=== PATIENT | male | born 1990 | race Caucasian/White ===

== ENCOUNTER 2019-10-12 21:16 | Inpatient (IN) | payer SELFPAY ==
[2019-10-12 21:18] VITALS: BP 158/100; PULSE 107; RESP 18; TEMP 36.9; O2SAT 98; BMI 23.7
--- NOTE | 2019-10-12 21:22 | W.ED.PSYCH ---
HPI - Psych General: Chief Complaint: Psychiatric Symptoms Stated Complaint: SI Time Seen by Provider: 10/12/19 21:17 Source: patient, police and other (police) Mode of arrival: other (police) History of Present Illness: HPI Narrative: 29-year-old male that is brought here by police under a 96-hour hold. Family states that he has been making threats to kill himself and has been using drugs and alcohol. Patient here denies being suicidal but is willing to get help. Patient's been cooperative here. He states he has drank today. He states he smokes marijuana denies any IV drug use. complaint: suicidal ideation Associated symptoms: Reports depression Review of Systems Const: Denies: fever, chills, body aches or change in appetite Eyes: Denies: blurry vision or eye discomfort ENMT: Denies: throat pain or dental pain Card: Denies: chest pain Resp: Denies: shortness of breath GI: Denies: abdominal pain, nausea, vomiting or diarrhea : Denies: painful urination Musc: Denies: neck pain or back pain Skin/Breast: Denies: rash Neuro: Denies: headache Psych: Reports: depression Jonathan/Lymph: Denies: easy bruising All/Imm: Denies: hives PFSH ED PFSH: Social History Smoking and tobacco status: current every day smoker Physical Exam Const: COMMON NORMALS: no apparent distress, oriented x3 and healthy appearing HENMT: COMMON NORMALS: normocephalic and head/scalp atraumatic HEAD & SCALP: normocephalic and atraumatic Eye: COMMON NORMALS: PERRL and EOMs intact bilaterally PUPIL: Yes PERRL Neck/C-Spine: COMMON NORMALS: full ROM and supple Chest: COMMONS NORMALS: inspection of chest normal and palpation of chest normal Resp: COMMON NORMALS: normal respiratory effort, no retractions, no use of accessory muscles and clear to auscultation bilaterally AUSCULTATION: clear to auscultation bilaterally Cardio: COMMON NORMALS: regular rate, regular rhythm and no murmurs RATE: regular rate RHYTHM: regular rhythm GI: COMMON NORMALS: normal to inspection, nondistended, normoactive bowel sounds, soft to palpation, non-tender and no masses PALPATION: Yes soft Extremity: COMMON NORMALS: normal to inspection and full ROM Neuro: COMMON NORMALS: oriented x3, moves all extremities and no focal motor deficits Psych: COMMON NORMALS: mental status grossly normal, thought process normal and cooperative THOUGHT PROCESS: normal thought process Skin: COMMON NORMALS: no rashes or lesions noted and no wounds GENERAL SKIN EXAM: no rashes or lesions noted MDM - Psych MDM Narrative: Medical decision making narrative: Patient presents here with suicidal ideation and is under a 96-hour hold. Patient's medically cleared and I spoke to Dr. Mai of psychiatry and will admit. Patient has been stable and cooperative here. Lab Data: Labs: Lab Results 10/12/19 10/12/19 Range/Units 21:29 21:29 WBC 12.8 H (4.0-10.0) 10^3/ uL RBC 4.51 (4.1-5.3) 10^6/u L Hgb 14.2 (11.7-16.6) g/dL Hct 43.1 (42.0-52.0) % MCV 95.6 H (80-94) fL MCH 31.5 (28.0-34.0) pg MCHC 32.9 (30.0-36.0) g/dL RDW 13.3 (12.1-15.1) % Plt Count 430 H (130-400) 10^3/c mm MPV 9.7 (7.4-10.4) fL Neut % (Auto) 69.2 % Lymph % (Auto) 18.7 % Shoshone % (Auto) 6.3 % Eos % (Auto) 4.8 % Baso % (Auto) 0.7 % Neut # (Auto) 8.9 H (1.8-7.7) 10^3/u L Lymph # (Auto) 2.4 (0.8-4.8) 10^3/u L Shoshone # (Auto) 0.8 (0.2-0.9) 10^3/u L Eos # (Auto) 0.6 (0.0-0.8) 10^3/u L Baso # (Auto) 0.1 (0.0-0.1) 10^3/u L Nucleated RBC % (a uto) 0 % Nucleated RBCs # 0.0 /100WBC Sodium 138 (136-145) mmol/L Potassium 3.9 (3.5-5.1) mmol/L Chloride 100 (98-107) mmol/L Carbon Dioxide 23 (22-29) mmol/L Anion Gap 18.9 (5-19) BUN 13 (6-20) mg/dL Creatinine 1.1 (0.7-1.2) mg/dL GFR Calculation 79.1 L (90-130) mL/min Glucose 99 (65-115) mg/dL Calculated Osmolal ity 282 L (285-295) mOsm/k g Calcium 9.2 (8.5-10.5) mg/dL Total Bilirubin 0.3 (0.15-1.2) mg/dL AST 49 H (0-40) U/L ALT 29 (0-41) U/L Alkaline Phosphata se 96 (40-130) IU/L Total Protein 7.3 (6.6-8.7) g/dL Albumin 4.6 (3.5-5.2) g/dL Globulin 2.7 (1.3-4.6) g/dL Salicylates < 0.3 L (3-10) mg/dL Acetaminophen < 5.0 L (10-30) ug/mL Ethyl Alcohol 16 H (0-10) mg/dL Discharge Plan Discharge Patient Disposition: Admitted As Inpatient Clinical Impression: Suicidal ideation Condition: Stable Coding Level of Care Code ED Certified Flex Endoscope Reprocessor for [facility] Fwd Exam Comprehensive
--- NOTE | 2019-10-12 21:29 | PC.NURSE ---
PATIENT STATES HE WAS PICKED UP AT HOME WHILE HE WAS WORKING BY THE LAW ENFORCEMENT. PATIENT STATES HE DOESN'T KNOW WHY HE IS AT THE HOSPITAL AND THAT HE IS NOT SUICIDAL. PATIENT STATES HE DOESN'T KNOW WHO SIGNED ANY PAPERWORK ON HIM TO HAVE HIM TAKEN TO THE HOSPITAL. PATIENT STATES HE WILL BE COOPERATIVE AND THAT HE JUST WANTS TO GET BACK TO WORK.
[2019-10-12 21:34] VITALS: RESP 16
[2019-10-12 21:39] LABS: Basophils # 0.1 10^3/uL (0.0-0.1); Basophils % 0.7 %; Eosinophils # 0.6 10^3/uL (0.0-0.8); Eosinophils % 4.8 %; Hematocrit 43.1 % (42.0-52.0); Hemoglobin 14.2 g/dL (11.7-16.6); Lymphocytes # 2.4 10^3/uL (0.8-4.8); Lymphocytes % 18.7 %; Mean Corpuscular HGB Conc 32.9 g/dL (30.0-36.0); Mean Corpuscular Hemoglobin 31.5 pg (28.0-34.0); Mean Corpuscular Volume 95.6 fL (80-94); Mean Platelet Volume 9.7 fL (7.4-10.4); Monocytes # 0.8 10^3/uL (0.2-0.9); Monocytes % 6.3 %; Neutrophils # 8.9 10^3/uL (1.8-7.7); Neutrophils % 69.2 %; Nucleated Red Blood Cells % 0 %; Platelet Count 430 10^3/cmm (130-400); Red Blood Count 4.51 10^6/uL (4.1-5.3); Red Cell Distribution Width 13.3 % (12.1-15.1); White Blood Count 12.8 10^3/uL (4.0-10.0)
[2019-10-12 21:47] VITALS: BP 158/99; PULSE 103; RESP 18; O2SAT 97
[2019-10-12 21:55] LABS: Alanine Aminotransferase 29 U/L (0-41); Albumin Level 4.6 g/dL (3.5-5.2); Alcohol Level 16 mg/dL (0-10); Alkaline Phosphatase 96 IU/L (40-130); Anion Gap 18.9 (5-19); Aspartate Amino Transferase 49 U/L (0-40); Blood Urea Nitrogen 13 mg/dL (6-20); Calcium 9.2 mg/dL (8.5-10.5); Carbon Dioxide 23 mmol/L (22-29); Chloride 100 mmol/L (98-107); Globulin 2.7 g/dL (1.3-4.6); Glomerular Filtration Rate 79.1 mL/min (90-130); Glucose 99 mg/dL (65-115); Osmolality Calculated 282 mOsm/kg (285-295); Potassium 3.9 mmol/L (3.5-5.1); Sodium 138 mmol/L (136-145); Total Bilirubin 0.3 mg/dL (0.15-1.2); Total Protein 7.3 g/dL (6.6-8.7)
[2019-10-12 22:06] LABS: Acetaminophen < 5.0 ug/mL (10-30); Salicylate < 0.3 mg/dL (3-10)
[2019-10-12 22:21] LABS: Amphetamines Screen Urine Positive (Negative); Barbiturates Screen Urine Negative (Negative); Benzodiazepines Screen Urine Negative (Negative); Cocaine Screen Urine Negative (Negative); Opiate Screen Urine Negative (Negative); PCP Screen Urine Negative (Negative); THC Screen Urine Positive (Negative)
--- NOTE | 2019-10-12 22:36 | PC.NURSE ---
Pt refusing nicotine patch
--- NOTE | 2019-10-12 23:01 | PC.NURSE ---
pt has complaints of back pain and bed is aggravating back injury. Pt refusing alternative chair or pain meds
--- NOTE | 2019-10-12 23:05 | PC.NURSE ---
Pt stating he will not sleep due to not being able to remove contact lenses and bed aggravating his back pain. Pt pacing around room, unable to sit still
--- NOTE | 2019-10-12 23:13 | PC.NURSE ---
1:1 SITTER MAINTAINED AT DOORWAY
[2019-10-12 23:51] VITALS: BP 160/105; PULSE 116; RESP 18; O2SAT 97
[2019-10-13 00:02] VITALS: BP 153/108; PULSE 98; TEMP 36.8; O2SAT 96
[2019-10-13 00:05] VITALS: BP 160/105; PULSE 116; RESP 18; O2SAT 97
[2019-10-13 06:00] VITALS: BP 141/95; PULSE 91; RESP 20; TEMP 36.4; O2SAT 96
[2019-10-13] MEDS: folic acid 1 mg Tablet PO (07:39)
[2019-10-13] MEDS: multivitamin therapeutic Tablet 1 TAB PO (07:39)
[2019-10-13] MEDS: thiamine 100 mg Tablet PO (07:39)
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
[2019-10-13 14:00] VITALS: BP 147/111; PULSE 105; RESP 18; TEMP 36.9; O2SAT 100
[2019-10-13] MEDS: nicotine 2 mg Gum BUCCAL (14:00)
[2019-10-13] MEDS: hyDROXYzine 25 mg Capsule 50 MG PO (14:50)
--- NOTE | 2019-10-13 14:51 | PC.NURSE ---
PRN VISTARIL 50 MG GIVEN PO PER PT C/O ANXIETY. PT TEARFUL AFTER CONVERSATION WITH . WILL CONT TO MONITOR FOR DESIRED MED EFFECTIVENESS.
--- NOTE | 2019-10-13 16:32 | PC.RESP ---
Smoking Cessation information with a schedule of classes sent to patient.
[2019-10-13 22:00] VITALS: BP 150/97; PULSE 79; RESP 17; TEMP 36.4; O2SAT 99
[2019-10-14 06:00] VITALS: BP 148/94; PULSE 103; RESP 18; TEMP 36.7; O2SAT 96
[2019-10-14] MEDS: folic acid 1 mg Tablet PO (09:00)
[2019-10-14] MEDS: thiamine 100 mg Tablet PO (09:00)
[2019-10-14] MEDS: multivitamin therapeutic Tablet 1 TAB PO (09:00)
[2019-10-14] MEDS: nicotine 2 mg Gum BUCCAL (13:06)
--- NOTE | 2019-10-14 13:22 | PC.SOCIAL ---
information from , Anjali [phone] patient has had mood swings off and on for 8 years. last 2 months has been worse. he has had substance abuse issues for several years. recently he admitted to using meth. he has left notes saying he hates himself. he has admitted using hydrocodeine pills from the street. he has snorted them. he has been worried about starting medicine on how it might affect his organ but he has no problem with drinking alcohol and taking pain pills. he complains of hand pain and back pain. most days he is irritable. he snores loudly he has high blood pressue at times he has been borrowing money from people and then saying he has nothing to show for it on how he spent it. He will say he gets gas and cigarettes but then come home without gas and cigarettes. wants their relationship to work. she wants him in rehab no matter what the cost. she is looking at [facility] in [place]. she does not think outpatient rehab will be enough.
[2019-10-14] MEDS: OLANZapine ODT 5 MG TABLET PO (13:44)
--- NOTE | 2019-10-14 13:44 | PC.NURSE ---
Addendum entered by Salima Linares LPN 10/14/19 15:58: MEDICATION EFFECTIVE. NO FURTHER C/O ANXIETY/AGITATION. Original Note: PRN ZYPREXA ZYDIS ZYPREXA ZYDIS 5 MG PO PER PATIENT C/O ANXIETY/AGITATION. PATIENT IS ON THE PHONE ARGUING WITH AND CRYING. WILL CONTINUE TO MONITOR FOR MEDICATION EFFECTIVENESS.
[2019-10-14 14:00] VITALS: BP 134/89; PULSE 82; RESP 18; TEMP 36.9; O2SAT 99
--- NOTE | 2019-10-14 15:32 | PM.NPN ---
Subjective NPU Subjective: Interval history: Deshaun presented today having spoken to his and he is dealing with multiple emotions. He continues to be sad but is also angry because he feels like he has reached out for months trying to get help and trying to reconnect their relationship. Now he feels like he is being painted as the problem and she is being painted as the savior and she is acting like she is in charge of this encounter. He was open the medication and we discussed the risks, benefits and alternatives of starting Prozac as well as lisinopril for his high blood pressure and he understood and agreed to proceed as is documented in this note. Mental Status Exam MSE Comments: This is a well-nourished, well-developed, white male, with adequate dress, grooming, and eye contact with notable deformity of his left arm, tattoo on his right bicep. Cooperative with exam in mild distress. Speech was decreased rate and volume. Mood described as angry/sad; affect congruent. Thought process, organized. Thought content: patient denied any suicidal or homicidal ideation, there were no delusions reported or noted, patient denied any auditory or visual hallucinations. Attention, concentration, and memory appear intact but were not formally tested. He is alert and oriented times three. Insight and judgment are fair. Vitals/I&O/Wt Last Vital Signs Temp 98.1 F 10/14/19 06:00 Pulse 103 H 10/14/19 06:00 Resp 18 10/14/19 06:00 BP 148/94 10/14/19 06:00 Pulse Ox 96 10/14/19 06:00 Data NPU : 10/12/19 21:29 10/12/19 21:29 A&P Assessment and plan (1) Alcohol abuse: Status: Acute (2) Methamphetamine abuse: Status: Acute (3) Cannabis abuse: Status: Acute (4) Partner relational problem: Status: Acute (5) Depression: Status: Acute (6) Suicidal ideation: Status: Acute Additional A&P Information (1) Suicidal ideation: This is a 29 year old, white male, with depression, spousal relational problems, and substance abuse issues that would benefit from some ongoing treatment, who presents after making some aggressive statements during an argument. He denies any lethality. Continue current medication except: Start prozac 20 mg and lisinopril 10. Continue q 15-minute checks for safety. Encourage individual, group, and milieu therapy. Will encourage sober living follow-up at the highest level to which he is willing to commit. At this point, the most likely fit would be outpatient services. (2) Depression: (3) Partner relational problem: (4) Cannabis abuse: (5) Methamphetamine abuse: (6) Alcohol abuse: Involuntary Hold Information 96 Hour Hold: 96 Hour Involuntary Admission: Yes 96 Hour Hold Ending Date: 10/18/19 96 Hour Hold Ending Time: 21:19 Attestations NPU Medical Necessity Statement*: Inpatient hospitalization is medically necessary and the clinically appropriate intervention at this time. We will monitor and consider medications, and make changes as indicated. He will be in the hospital for over two midnights. Likely length of stay 1-3 days. Coding Level of Care Code Acute Automotive Service Director for [facility] Diagnoses Alcohol abuse F10.10 Methamphetamine abuse F15.10 Cannabis abuse F12.10 Partner relational problem Z63.0 Depression F32.9 Suicidal ideation R45.851
[2019-10-14] MEDS: fluoxetine 20 mg Capsule PO (15:51)
[2019-10-14] MEDS: lisinopril 10 mg Tablet PO (15:51)
[2019-10-14] MEDS: trazodone 50 mg Tablet PO (20:37)
[2019-10-14 22:00] VITALS: BP 135/87; PULSE 89; RESP 17; TEMP 36.6; O2SAT 99
[2019-10-15 06:00] VITALS: BP 138/100; PULSE 101; RESP 18; TEMP 36.5; O2SAT 98
[2019-10-15] MEDS: folic acid 1 mg Tablet PO (08:03)
[2019-10-15] MEDS: thiamine 100 mg Tablet PO (08:03)
[2019-10-15] MEDS: fluoxetine 20 mg Capsule PO (08:03)
[2019-10-15] MEDS: lisinopril 10 mg Tablet PO (08:03)
[2019-10-15] MEDS: multivitamin therapeutic Tablet 1 TAB PO (08:04)
[2019-10-15] MEDS: nicotine 2 mg Gum BUCCAL ×4 (08:04→18:17)
--- NOTE | 2019-10-15 12:33 | PM.NPN ---
Subjective NPU Subjective: Interval history: Deshaun presents today reporting that he is feeling okay on the medication. He has been having conversations with his and trying to figure out how they are going to get things moving in the right direction. He reports she reports that she got a marriage counselor appointment for them in 10 days or so. We discussed the importance of him getting individual counseling to begin to deal with these anger issues that go back to issues surrounding the absence of his father. He denies any side effects of medications. Mental Status Exam MSE Comments: This is a well-nourished, well-developed, white male, with adequate dress, grooming, and eye contact with notable deformity of his left arm, tattoo on his right bicep. Cooperative with exam in no acute distress. Speech was mildly decreased rate and volume but improving. Mood described as better; affect congruent. Thought process, organized. Thought content: patient denied any suicidal or homicidal ideation, there were no delusions reported or noted, patient denied any auditory or visual hallucinations. Attention, concentration, and memory appear intact but were not formally tested. He is alert and oriented times three. Insight and judgment are fair and improving. Vitals/I&O/Wt Last Vital Signs Temp 98.4 F 10/15/19 22:00 Pulse 101 H 10/15/19 22:00 Resp 18 10/15/19 22:00 BP 128/95 10/15/19 22:00 Pulse Ox 95 10/15/19 22:00 Data NPU : 10/12/19 21:29 10/12/19 21:29 A&P Additional A&P Information (1) Suicidal ideation: This is a 29 year old, white male, with depression, spousal relational problems, and substance abuse issues that would benefit from some ongoing treatment, who presents after making some aggressive statements during an argument. He denies any lethality. Continue current medication except: Continue q 15-minute checks for safety. Encourage individual, group, and milieu therapy. Will encourage sober living follow-up at the highest level to which he is willing to commit. At this point, the most likely fit would be outpatient services. (2) Depression: (3) Partner relational problem: (4) Cannabis abuse: (5) Methamphetamine abuse: (6) Alcohol abuse: Involuntary Hold Information 96 Hour Hold: 96 Hour Involuntary Admission: Yes 96 Hour Hold Ending Date: 10/18/19 96 Hour Hold Ending Time: 21:19 Attestations NPU Medical Necessity Statement*: Inpatient hospitalization is medically necessary and the clinically appropriate intervention at this time. We will monitor and consider medications, and make changes as indicated. He will be in the hospital for over two midnights. Likely length of stay 1-3 days. Coding Level of Care Code Acute Manufacturing Quality Engineer for [facility]
[2019-10-15 14:00] VITALS: BP 124/81; PULSE 89; RESP 18; TEMP 36.5; O2SAT 99
[2019-10-15] MEDS: trazodone 50 mg Tablet PO (20:55)
[2019-10-15] MEDS: acetaminophen 325 mg Tablet 650 MG PO (20:57)
[2019-10-15 22:00] VITALS: BP 128/95; PULSE 101; RESP 18; TEMP 36.9; O2SAT 95
[2019-10-16 06:00] VITALS: BP 143/83; PULSE 105; RESP 18; TEMP 36.5; O2SAT 98
[2019-10-16] MEDS: nicotine 2 mg Gum BUCCAL ×3 (08:20→13:22)
[2019-10-16] MEDS: thiamine 100 mg Tablet PO (08:20)
[2019-10-16] MEDS: folic acid 1 mg Tablet PO (08:20)
[2019-10-16] MEDS: multivitamin therapeutic Tablet 1 TAB PO (08:20)
[2019-10-16] MEDS: fluoxetine 20 mg Capsule PO (08:20)
[2019-10-16] MEDS: lisinopril 10 mg Tablet PO (08:20)
[2019-10-16] MEDS: acetaminophen 325 mg Tablet 650 MG PO (08:21)
[2019-10-16] MEDS: OLANZapine ODT 5 MG TABLET PO (13:22)
--- NOTE | 2019-10-16 13:22 | PC.NURSE ---
PRN ZYPREXA ZYDIS ZYPREXA ZYDIS 5MG PO PER PATIENT C/O ANXIETY/AGITATION. PATIENT IS ANXIOUSLY WAITING FOR THE DOCTOR TO GET HERE SO HE CAN POSSIBLY BE DISCHARGED. WILL CONTINUE TO MONITOR FOR MEDICATION EFFECTIVENESS.
--- NOTE | 2019-10-16 14:34 | ECG_ITS ---
Measurements Intervals [place] Rate: 94 P: 81 WI: 122 QRS: 67 QRSD: 94 T: 70 QT: 334 QTc: 419 SINUS RHYTHM WITH MARKED SINUS ARRHYTHMIA RIGHT ATRIAL ENLARGEMENT [0.3mV P WAVE] POSSIBLE LEFT ATRIAL ENLARGEMENT [-0.1mV P WAVE IN V1/V2] POSSIBLE RIGHT VENTRICULAR CONDUCTION DELAY [RSR (QR) IN V1/V2] No previous ECG available for comparison Electronically Signed On 10-16-2019 20:16:45 CDT by Diana Collado M.D. [email or web address]
[2019-10-16 14:36] VITALS: PULSE 105
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
[2019-10-16] MEDS: metoprolol tartrate 25 mg Tablet 12.5 MG PO (15:08)
[2019-10-16 15:14] VITALS: BP 143/83; PULSE 105; RESP 18; TEMP 36.5; O2SAT 98
== END 2019-10-16 15:44 | disposition home or self-care (01) | DRG 881 ==
LOC: ER 21:51 → NP 23:48
PROVIDERS: Admitting Provider Psychiatry & Neurology Psychiatry; Emergency Provider Emergency Medicine; Visit Provider Psychiatry & Neurology Psychiatry
DX: F32.9 Major depressive disorder, single episode, unspecified (principal); R45.851 Suicidal ideations; F17.210 Nicotine dependence, cigarettes, uncomplicated; F12.10 Cannabis abuse, uncomplicated; F15.10 Other stimulant abuse, uncomplicated; F10.10 Alcohol abuse, uncomplicated; Z63.0 Problems in relationship with spouse or partner
CPT/HCPCS: 12345; 36415; 80053; 80306; 80307; 85025; 93005; 99284